=== PATIENT | female | born 1995 | race Hispanic/Latino ===

== ENCOUNTER 2021-06-07 17:19 | Observation (INO) | payer MEDICAID ==
[2021-06-07 18:17] VITALS: BP 121/76
[2021-06-07] MEDS ORDERED: TERBUTALINE 1 MG/1 ML INJ SUB-Q PRN (19:13)
[2021-06-07] MEDS ORDERED: miSOPROStol 200 MCG TAB PR PRN (19:13)
[2021-06-07] MEDS ORDERED: LOPERAMIDE 2 MG CAP PO PRN (19:13)
[2021-06-07] MEDS ORDERED: MINERAL OIL 30 ML ORAL LIQD PO PRN (19:13)
[2021-06-07] MEDS ORDERED: CARBOPROST TROMETHAMINE 250 MCG/1 ML INJ IM PRN (19:13)
[2021-06-07] MEDS ORDERED: BUTORPHANOL 2 MG/1 ML INJ IV PRN (19:13)
[2021-06-07] MEDS ORDERED: ePHEDrine SULFATE 50 MG/1 ML INJ IV PRN (19:13)
[2021-06-07] MEDS ORDERED: ACETAMINOPHEN 325 MG TAB PO PRN (19:13)
[2021-06-07] MEDS ORDERED: METHYLERGONOVINE MALEATE 0.2 MG/ML VIAL IM PRN (19:13)
[2021-06-07] MEDS ORDERED: LIDOCAINE (2%) 20 MG/1 ML VIAL 20 ML MDV INFILTRATI ONE (19:13)
[2021-06-07] MEDS ORDERED: OXYTOCIN 10 UNIT/1 ML INJ IM PRN (19:13)
[2021-06-07] MEDS ORDERED: LACTATED RINGERS 1,000 ML IV SCH (19:15)
[2021-06-07] MEDS ORDERED: OXYTOCIN DRIP 30 UNITS/500 ML BAG IV SCH ×2 (20:00)
[2021-06-08 01:07] LABS: Hemoglobin 12.3 gm/dl (10.1-14.3); Mean Corpuscular HGB Conc 34 % (30-34); Mean Corpuscular Volume 93 fl (79-97); Platelet Count 200 K/mm3 (140-440); Red Blood Count 3.86 M/mm3 (3.65-5.03); Red Cell Distribution Width 13.3 % (13.2-15.2)
== END 2021-06-08 08:17 | disposition left against medical advice (07) ==
LOC: TRG 17:19 → APU 17:20 → TRG 19:13 → APU 19:13 → LD 23:24
PROVIDERS: ADMIT Obstetrics & Gynecology; ATTEND Obstetrics & Gynecology
DX: O62.9 Abnormality of forces of labor, unspecified (principal); O48.0 Post-term pregnancy; Z3A.40 40 weeks gestation of pregnancy; Z79.899 Other long term (current) drug therapy; Z98.890 Other specified postprocedural states; Z87.891 Personal history of nicotine dependence
CPT/HCPCS: 36415; 85027; 86592; 86850; 86900; 86901; G0378